=== PATIENT | female | born 1940 | race Caucasian/White ===

== ENCOUNTER 2018-06-18 11:35 | Inpatient (IN) | payer OTHER ==
[~2018-06-18] VITALS: Ht 152.4 cm; Wt 72.6 kg
[~2018-06-18 11:35] MED LIST: COZAAR100 MG PO; METROPOLOL PO; PANADOL EXTRA500 MG PO; [UNRECOGNIZED DRUG - OTHER] PO
[2018-06-22] MEDS ORDERED: TOPROL XL100 M1 PO (08:09)
[2018-06-22] MEDS ORDERED: TOPAMAX50 MG PO (08:10)
[2018-06-23] MEDS ORDERED: GABAPENTIN800 MG PO (09:22)
[2018-06-23] MEDS ORDERED: DOCUSATE SODIU100 MG PO (09:22)
[2018-06-23] MEDS ORDERED: PERCOCET 5-3251 EACH PO (09:24)
[2018-06-23] MEDS ORDERED: CLONAZEPAM1 MG PO (09:24)
[2018-06-23] MEDS ORDERED: AMOX-CLAV 875-1 EACH PO (09:24)
== END 2018-06-23 16:54 | disposition home or self-care (01) | DRG 455 ==
LOC: O/R 06-22 07:31 → SURH 06-22 07:51
PROVIDERS: Orthopaedic Surgery Orthopaedic Surgery of the Spine
PROC: 0SG0071 Fusion of Lumbar Vertebral Joint with Autologous Tissue Substitute, Posterior Approach, Posterior Column, Open Approach (ICD-10-PCS; 2018-06-22)
PROC: 0SG00AJ Fusion of Lumbar Vertebral Joint with Interbody Fusion Device, Posterior Approach, Anterior Column, Open Approach (ICD-10-PCS; 2018-06-22)
PROC: 0SB20ZZ Excision of Lumbar Vertebral Disc, Open Approach (ICD-10-PCS; 2018-06-22)
PROC: 07DS3ZZ Extraction of Vertebral Bone Marrow, Percutaneous Approach (ICD-10-PCS; 2018-06-22)
PROC: 0SG00A0 Fusion of Lumbar Vertebral Joint with Interbody Fusion Device, Anterior Approach, Anterior Column, Open Approach (ICD-10-PCS; principal; 2018-06-22 12:30)
DX: M48.061 Spinal stenosis, lumbar region without neurogenic claudication (principal); M51.16 Intervertebral disc disorders with radiculopathy, lumbar region; M43.16 Spondylolisthesis, lumbar region; I10 Essential (primary) hypertension; Z88.0 Allergy status to penicillin